=== PATIENT | female | born 1990 | race Two or more races ===

== ENCOUNTER 2019-03-10 18:17 | Emergency (ER) | payer SELFPAY ==
[~2019-03-10] VITALS: Ht 157.5 cm; Wt 44.5 kg
[2019-03-10] MEDS ORDERED: Lidocaine 2% Visc 15ml soln ORAL ONE (19:00)
--- NOTE | 2019-03-10 19:00 | NUR ---
ED Nurse Note: Patient brought in by 's department- [facility] c/o medical clearance, patient is complaining of right upper quadrant pain that radiates to her back
--- NOTE | 2019-03-10 19:01 | Emergency Room Report ---
History of Present Illness General Chief Complaint: Medical Clearance Source: Patient Present Illness HPI 28-year-old female presents to the emergency department for medical clearance for incarceration after complaining of right-sided abdominal pain that she rates as 6 out of 10 severity. Patient reports symptoms have been intermittent x2 months however today her pain is more constant in nature. Patient reports nausea she denies vomiting, constipation, diarrhea, fevers or chills. Patient reports she is currently on her. Denies . Patient reports tenderness to palpation she denies any relieving factors. Patient states she does not notice any particular habits that exacerbate her pain otherwise. She reports she believes her pain is worse due to having stress/ argument today. Per triage pt. reports Dm Type 2 and asthma but is not on medications. Allergies: Coded Allergies: PENICILLINS (Verified Allergy, Unknown, 03/10/19) Patient History Past Medical History: see triage record Past Surgical History: none Pertinent Family History: none Last Menstrual Period: currently on it Now: No Reviewed Nursing Documentation: PMH: Agreed; PSxH: Agreed Nursing Documentation-PMH Past Medical History: No History, Except For Hx Asthma: Yes Hx Diabetes: Yes - Type 2 Review of Systems All Other Systems: negative except mentioned in HPI Physical Exam Vital Signs Date Time Temp Pulse Resp B/P (MAP) Pulse Ox O2 Delivery O2 Flow Rate FiO2 03/10/19 18:23 98.2 81 18 98/64 (75) 99 Room Air Sp02 EP Interpretation: reviewed, normal General Appearance: normal inspection, no apparent distress, alert, GCS 15, non -toxic Head: normocephalic, atraumatic Eyes: bilateral eye normal inspection, bilateral eye PERRL ENT: hearing grossly normal, normal voice Neck: full range of motion, no meningismus, no bony tend Respiratory: chest non-tender, lungs clear, normal breath sounds, no respiratory distress, no accessory muscle use, no wheezing, speaking full sentences Cardiovascular #1: regular rate, rhythm, normal capillary refill Gastrointestinal: normal bowel sounds, soft, non-distended, no guarding, tenderness Rectal: deferred Genitourinary: normal inspection, no CVA tenderness Musculoskeletal: back normal, gait/station normal, normal range of motion, non- tender Neurologic: alert, oriented x3, responsive, motor strength/tone normal, sensory intact, normal gait, speech normal, grossly normal Psychiatric: judgement/insight normal Skin: no rash, other - no open wounds Medical Decision Making PA Attestation Dr. Maya is my supervising Physician whom patient management has been discussed with. Diagnostic Impression: Primary Impression: Medical clearance for incarceration Additional Impressions: Right lateral abdominal pain Assessment examination refused ER Course 28-year-old female presents to the emergency department for medical clearance for incarceration after complaining of right-sided abdominal pain that she rates as 6 out of 10 severity. Patient reports symptoms have been intermittent x2 months however today her pain is more constant in nature. Patient reports nausea she denies vomiting, constipation, diarrhea, fevers or chills. Patient reports she is currently on her. Denies . Patient reports tenderness to palpation she denies any relieving factors. Patient states she does not notice any particular habits that exacerbate her pain otherwise. She reports she believes her pain is worse due to having stress/ argument today. Per triage pt. reports Dm Type 2 and asthma but is not on medications. Ddx considered but are not limited to Diverticulitis, acute appendicitis, diarrhea,UC, PUD, GE, pancreatitis, gallstone, ovarian torsion, ectopic , PID tubo-ovarian abscess. Vital signs: are WNL, pt. is afebrile H&PE are most consistent with right sided epigastric/RUQ abdominal pain without PE findings suggestive of acute abdomen. Pt. is non-toxic in appearance. NAD, sitting comfortably. ORDERS: -CBC, CMP, LIPASE: WNL other than mild elevation in CBC at 11.9 , glucose is normal. -UA: Pt. refused per RN -URINE HCG:- unable to obtain, Pt. refused per SERVICE CLERK INTERVENTIONS: -PO pepcid -Lidocaine PO Pt. reports symptoms have resolved after medications. -I do not identify an emergent condition at this time. With current presentation , pt. is stable for close outpatient follow up and conservative treatment. D/ w pt. to return promptly to ED with worsening or new symptoms.- Pt. verbalizes' understanding and agreement with proposed treatment plan. DISCHARGE: At this time pt. is stable for d/c to home. Will provide printed patient care instructions, and any necessary prescriptions. Care plan and follow up instructions have been discussed with the patient prior to discharge. Labs Test 03/10/19 19:20 White Blood Count 11.9 K/UL (4.8-10.8) Red Blood Count 4.43 M/UL (4.20-5.40) Hemoglobin 14.0 G/DL (12.0-16.0) Hematocrit 42.1 % (37.0-47.0) Mean Corpuscular Volume 95 FL (80-99) Mean Corpuscular Hemoglobin 31.7 PG (27.0-31.0) Mean Corpuscular Hemoglobin Concent 33.3 G/DL (32.0-36.0) Red Cell Distribution Width 12.6 % (11.6-14.8) Platelet Count 329 K/UL (150-450) Mean Platelet Volume 5.1 FL (6.5-10.1) Neutrophils (%) (Auto) 57.9 % (45.0-75.0) Lymphocytes (%) (Auto) 29.9 % (20.0-45.0) Monocytes (%) (Auto) 6.5 % (1.0-10.0) Eosinophils (%) (Auto) 4.9 % (0.0-3.0) Basophils (%) (Auto) 0.8 % (0.0-2.0) Sodium Level 141 MMOL/L (136-145) Potassium Level 4.1 MMOL/L (3.5-5.1) Chloride Level 104 MMOL/L (98-107) Carbon Dioxide Level 30 MMOL/L (21-32) Anion Gap 7 mmol/L (5-15) Blood Urea Nitrogen 10 mg/dL (7-18) Creatinine 0.7 MG/DL (0.55-1.30) Estimat Glomerular Filtration Rate > 60 mL/min (>60) Glucose Level 86 MG/DL (74-106) Calcium Level 9.1 MG/DL (8.5-10.1) Total Bilirubin 0.4 MG/DL (0.2-1.0) Aspartate Amino Transf (AST/SGOT) 15 U/L (15-37) Alanine Aminotransferase (ALT/SGPT) 11 U/L (12-78) Alkaline Phosphatase 74 U/L (46-116) Total Protein 7.4 G/DL (6.4-8.2) Albumin 3.8 G/DL (3.4-5.0) Globulin 3.6 g/dL Albumin/Globulin Ratio 1.1 (1.0-2.7) Lipase 143 U/L (73-393) Last Vital Signs Date Time Temp Pulse Resp B/P (MAP) Pulse Ox O2 Delivery O2 Flow Rate FiO2 03/10/19 18:23 98.2 81 18 98/64 (75) 99 Room Air Disposition: HOME, SELF-CARE Condition: Stable Departure Forms: Intermediate Clearance Patient Instructions: Medical Screening Exam Additional Instructions: Take medications as directed. Follow up with a Primary Care Provider in 3-5 days, even if your symptoms have resolved. Return sooner to ED if new symptoms occur, or current symptoms become worse. - Please note that this Emergency Department Report was dictated using dineout[employer] cleaner operator technology software, occasionally this can lead to erroneous entry secondary to interpretation by the dictation equipment. Sola Alford Mar 10, 2019 19:01
[2019-03-10 19:15] VITALS: BP 98/64
--- NOTE | 2019-03-10 19:20 | NUR ---
Blood samples collected, unable to provide urine sample at this time. LASD at bedside.
[2019-03-10] MEDS ORDERED: Lidocaine 2% Visc 15ml soln ORAL SCH (19:25)
[2019-03-10 19:46] LABS: BASOPHILS % (AUTO) 0.8 % (0.0-2.0); EOSINOPHILS % (AUTO) 4.9 % (0.0-3.0); HEMATOCRIT 42.1 % (37.0-47.0); LYMPHOCYTES % (AUTO) 29.9 % (20.0-45.0); MEAN CORPUSCULAR VOLUME 95 FL (80-99); MONOCYTES % (AUTO) 6.5 % (1.0-10.0); NEUTROPHILS % (AUTO) 57.9 % (45.0-75.0); PLATELET COUNT 329 K/UL (150-450); RED BLOOD COUNT 4.43 M/UL (4.20-5.40); RED CELL DISTRIBUTION WIDTH 12.6 % (11.6-14.8); WHITE BLOOD COUNT 11.9 K/UL (4.8-10.8)
--- NOTE | 2019-03-10 19:52 | NUR ---
ED Nurse Note: reassessed pt ability to provide urine. pt unable to urinate at this time.
[2019-03-10 19:59] LABS: ANION GAP 7 mmol/L (5-15); BLOOD UREA NITROGEN 10 mg/dL (7-18); CALCIUM 9.1 MG/DL (8.5-10.1); CARBON DIOXIDE 30 MMOL/L (21-32); CHLORIDE 104 MMOL/L (98-107); CREATININE 0.7 MG/DL (0.55-1.30); POTASSIUM 4.1 MMOL/L (3.5-5.1); SODIUM 141 MMOL/L (136-145)
[2019-03-10 20:04] LABS: ALANINE AMINOTRANSFERASE 11 U/L (12-78); ALBUMIN 3.8 G/DL (3.4-5.0); ALBUMIN/GLOBULIN RATIO 1.1 (1.0-2.7); ALKALINE PHOSPHATASE 74 U/L (46-116); ASPARTATE AMINO TRANSFERASE 15 U/L (15-37); BILIRUBIN,TOTAL 0.4 MG/DL (0.2-1.0)
--- NOTE | 2019-03-10 20:30 | NUR ---
ED Nurse Note:. informed ermd that pt refusing to provide urine
--- NOTE | 2019-03-10 20:54 | NUR ---
ER DISCHARGE NOTE: Patient is cleared to be discharged per ERMD, pt is aox4, on room air, with stable vital signs. pt was given dc instructions, pt was able to verbalize understanding, pt id band removed. pt is able to ambulate with steady gait. pt took all belongings. pt accompanied by lapd
== END 2019-03-10 20:54 ==
LOC: EMR 20:45
DX: R10.9 Unspecified abdominal pain (principal); E11.9 Type 2 diabetes mellitus without complications; J45.909 Unspecified asthma, uncomplicated; Z88.0 Allergy status to penicillin
CPT/HCPCS: 36415; 80053; 83690; 85025; 99283